=== PATIENT | female | born 1960 | race Caucasian/White ===

== ENCOUNTER 2023-03-25 11:47 | Emergency (ER) | payer MEDICAID ==
[~2023-03-25] VITALS: Ht 152.4 cm; Wt 80.3 kg
[2023-03-25 12:24] VITALS: BP 128/69; TEMP 98.5
[2023-03-25] MEDS ORDERED: PREDNISONE 20MG TABLET PO ONE (13:30)
[2023-03-25] MEDS ORDERED: ALBUTEROL (0.083%) 2.5MG/3ML NEB HHN ONE (13:30)
[2023-03-25 14:40] VITALS: PULSE 83; RESP 18; O2SAT 97
[2023-03-25] MEDS ORDERED: P50 PO (15:29)
[2023-03-25] MEDS ORDERED: ALBU18HF2 IH (15:31)
== END 2023-03-25 16:21 | disposition home or self-care (01) ==
LOC: ER 11:47
DX: J45.901 Unspecified asthma with (acute) exacerbation (principal)
CPT/HCPCS: 71045; 94640; 99283; J7512; Z7610 ×3

== ENCOUNTER 2023-10-10 10:17 | Emergency (ER) | payer MEDICAID ==
[~2023-10-10] VITALS: Ht 157.5 cm; Wt 82.0 kg
[~2023-10-10 10:17] MED LIST: ALBU18HF2 IH; P50 PO
[2023-10-10 10:26] VITALS: O2SAT 97
[2023-10-10] MEDS ORDERED: LORAZEPAM 0.5MG TABLET PO ONE (11:00)
[2023-10-10] MEDS: ACETAMINOPHEN 325MG TABLET PO ONE (12:39)
[2023-10-10] MEDS: ONDANSETRON HCL 4MG TABLET PO ONE (12:39)
[2023-10-10] MEDS: LORAZEPAM 0.5MG TABLET PO NR (12:40)
[2023-10-10 12:41] LABS: BASOPHILS % 0.7 % (0.0-2.0); EOSINOPHILS % 0.4 % (0.0-5.0); HEMATOCRIT. 46.3 % (36.0-48.0); HEMOGLOBIN. 16.1 g/dL (12.0-16.0); LYMPHOCYTES % 33.9 % (20.0-50.0); MEAN CORPUSCULAR HEMOGLOBIN 32.1 pg (28.0-32.0); MEAN CORPUSCULAR HGB CONC 34.7 g/dL (31.0-37.0); MEAN CORPUSCULAR VOLUME 92.4 fL (81.0-99.0); MEAN PLATELET VOLUME 8.4 fl (7.4-10.4); MONOCYTES % 5.4 % (2.0-8.0); NEUTROPHILS % 59.6 % (40.0-76.0); PLATELET 304 x1000/uL (130-400); RED BLOOD CELL COUNT 5.01 mill/uL (4.2-5.4); WHITE BLOOD COUNT 11.1 x1000/uL (4.5-11.0)
[2023-10-10 12:51] LABS: ALANINE AMINOTRANSFERASE 87 IU/L (10-49); ALBUMIN 5.1 g/dL (3.2-4.8); ASPARTATE AMINOTRANSFERASE 50 IU/L (<34); B-HCG QUANTITATIVE 3 mIU/mL (<3); BILIRUBIN TOTAL 1.5 mg/dL (0.1-1.0); CALCIUM 9.9 mg/dL (8.7-10.4); CARBON DIOXIDE 24 mEq/L (21-32); CHLORIDE 103 mEq/L (98-107); CREATININE 0.9 mg/dL (0.6-1.0); GLUCOSE 125 mg/dL (70-105); POTASSIUM 3.3 mEq/L (3.5-5.1); PROTEIN TOTAL 8.6 g/dL (6.0-8.3); SODIUM 138 mEq/L (136-145); TROPONIN I HIGH SENSITIVITY 4 ng/L (3.0-34); UREA NITROGEN BLOOD 13 mg/dL (9-23)
[2023-10-10] MEDS: POTASSIUM CHLORIDE 20MEQ/PACKET PO ONE (14:33)
[2023-10-10 14:35] VITALS: BP 111/61; PULSE 84; RESP 18; TEMP 98.6
[2023-10-10 15:22] LABS: CLARITY URINE TURBID (CLEAR); COLOR URINE DARK YELLOW (YELLOW); GLUCOSE URINE NEGATIVE (NEGATIVE); KETONES URINE TRACE (NEGATIVE); LEUKOCYTE ESTERASE URINE 2+ (NEGATIVE); NITRITE URINE NEGATIVE (NEGATIVE); OCCULT BLOOD URINE NEGATIVE (NEGATIVE); PH URINE 5.5 (4.5-8.0); PROTEIN URINE 1+ (NEGATIVE)
[2023-10-10 15:39] LABS: BACTERIA URINE 1+; SQUAMOUS EPITHELIAL CELL URINE 1+ /lpf (RARE/1+); WBC URINE 25-50 /hpf (0-2); YEAST URINE NONE SEEN
[2023-10-10 15:40] LABS: AMORPHOUS SEDIMENT URINE 3+ /lpf
== END 2023-10-10 14:38 | disposition home or self-care (01) ==
LOC: ER 10:39
DX: F41.9 Anxiety disorder, unspecified (principal); R51.9 Headache, unspecified; R11.0 Nausea; J45.909 Unspecified asthma, uncomplicated
CPT/HCPCS: 99285; 70450; 71045; 80053; 81003; 81025; 84702; 83880; 85025; 87086; 84484; 36415; 93005; Q0162

== ENCOUNTER 2024-07-05 18:08 | Emergency (ER) | payer MEDICARE, MEDICAID ==
[~2024-07-05] VITALS: Ht 154.9 cm; Wt 74.8 kg
[2024-07-05] MEDS: PREDNISONE 20MG TABLET PO STA (19:29)
[2024-07-05] MEDS: ALBUTEROL (0.083%) 2.5MG/3ML NEB HHN SCH (19:29)
[2024-07-05] MEDS: IPRATROPIUM BROMIDE (0.02%) 0.5MG/2.5ML NEB HHN STA (19:31)
[2024-07-05 19:35] VITALS: PULSE 87; RESP 22; O2SAT 95
[2024-07-05 21:00] VITALS: BP 135/64; PULSE 89; RESP 17; TEMP 36.94740; O2SAT 100
[2024-07-05 21:10] LABS: BASOPHILS % 0.5 % (0.0-2.0); EOSINOPHILS % 4.5 % (0.0-5.0); HEMATOCRIT. 46.9 % (36.0-48.0); HEMOGLOBIN. 16.1 g/dL (12.0-16.0); LYMPHOCYTES % 44.7 % (20.0-50.0); MEAN CORPUSCULAR HEMOGLOBIN 33.3 pg (28.0-32.0); MEAN CORPUSCULAR HGB CONC 34.2 g/dL (31.0-37.0); MEAN CORPUSCULAR VOLUME 97.4 fL (81.0-99.0); MEAN PLATELET VOLUME 8.2 fl (7.4-10.4); MONOCYTES % 6.2 % (2.0-8.0); NEUTROPHILS % 44.1 % (40.0-76.0); PLATELET 266 x1000/uL (130-400); RED BLOOD CELL COUNT 4.82 mill/uL (4.2-5.4); RED CELL DISTRIBUTION WIDTH 13.4 % (11.6-14.6); WHITE BLOOD COUNT 11.1 x1000/uL (4.5-11.0)
[2024-07-05 21:15] LABS: CHLORIDE 108 mEq/L (98-107); POTASSIUM 4.4 mEq/L (3.5-5.1); SODIUM 141 mEq/L (136-145)
[2024-07-05 21:16] LABS: CARBON DIOXIDE 28 mEq/L (21-32)
[2024-07-05 21:17] LABS: CALCIUM 9.6 mg/dL (8.7-10.4)
[2024-07-05 21:21] LABS: CREATININE 0.8 mg/dL (0.6-1.0)
[2024-07-05 21:22] LABS: GLUCOSE 99 mg/dL (70-105); UREA NITROGEN BLOOD 11 mg/dL (9-23)
[2024-07-05 21:24] LABS: TROPONIN I HIGH SENSITIVITY 17 ng/L (3.0-34)
[2024-07-05] MEDS ORDERED: P50 MT (21:28)
[2024-07-05] MEDS ORDERED: ALBU18HF2 IH (21:28)
[2024-07-05] MEDS ORDERED: ALBU2.5V13 NEB (21:29)
== END 2024-07-05 21:30 | disposition home or self-care (01) ==
LOC: ER 18:08 → CANBEDREQ 07-06 01:38
DX: J45.901 Unspecified asthma with (acute) exacerbation (principal); F41.9 Anxiety disorder, unspecified; Z88.5 Allergy status to narcotic agent; Z79.52 Long term (current) use of systemic steroids
CPT/HCPCS: 99285; 71045; 80048; 83880; 85025; 84484; 36415; 94640; 93005; J7512